=== PATIENT | male | born 1995 | race Caucasian/White ===

== ENCOUNTER 2024-10-01 13:27 | Emergency (ER) | payer SELFPAY ==
[2024-10-01 13:29] VITALS: BP 149/93; PULSE 96; RESP 18; TEMP 36.6; O2SAT 98
--- NOTE | 2024-10-01 14:38 | EDS_ITS ---
HPI History of Present Illness Chief Complaint: Sore Throat [facility] Medical History (Updated 10/01/24 @ 14:58 by Manuela Jacobo) Sore throat Allergy/AdvReac Type Severity Reaction Status Date / Time No Known Allergies Allergy Verified 10/01/24 13:33 Social History Smoking Status: Unknown if ever smoked EXAM Physical Exam Const Vital Signs: 10/01/24 13:29 10/01/24 14:58 10/01/24 17:00 Temperature 97.9 F Temperature Source Oral Pulse Rate 96 91 Respiratory Rate 18 20 H Blood Pressure 149/93 H Blood Pressure Mean 111 Pulse Ox 98 95 95 Oxygen Delivery Method Room Air Room Air Room Air MDM [facility] Narrative Medical decision making narrative: HISTORY OF PRESENT ILLNESS: Chief complaint: Sore throat [employer] used via [email or web address] network 28-year-old male presents with sore throat. REVIEW OF SYSTEMS: Pertinent positives: Sore throat Pertinent negatives: Drooling, vomiting PHYSICAL EXAM: Nursing triage notes reviewed, Vital signs reviewed Constitutional: please see mdm HENT: MMM, patent posterior oropharynx, no pooling of secretions, uvula midline, no pharyngeal exudates or edema, normal phonation, Eyes: Pupils equal round and reactive to light, Extraocular muscles intact Neck: No stridor, no JVD, full neck ROM, trachea midline, no lymphadenopathy Lungs: Clear to auscultation, No wheezing or rales. No increased work of breathing, no conversational dyspnea, no accessory muscle use, no nasal flaring. No respiratory distress noted Heart: Regular rate and rhythm, No murmurs, No rubs and No gallops, 2+ distal pulses (radial, femoral, posterior tibial) in all extremities Abdomen: Soft, there is no tenderness, rigidity, rebound or guarding, no obvious peritoneal signs, no palpable pulsatile abdominal masses, no auscultated abdominal bruit : No CVAT Extremities: No edema Neuro: No new focal neurological deficits, cranial nerves II through XII intact, 5/5 strength in all present extremities. Intact sensation to light touch in all present extremities, 2+ reflexes bilateral patella tendons. Skin: No rash or lesions noted MEDICAL DECISION MAKING: Chief Complaint: please see HPI External records reviewed: Reviewed prior encounters Factors affecting care: none Social determinants of health: none History obtained from others: none Consults: none [facility] Narrative: The patient was initially hemodynamically stable, exam without signs of respiratory distress. No sign of esophageal impaction patient is tolerating secretions, food and liquids. I considered the following differential diagnosis: Anatomic abnormality of the neck or throat, esophageal stricture ALL IMAGES (IF OBTAINED) HAVE BEEN PERSONALLY REVIEWED AND INTERPRETED BY MYSELF. CT scan of the neck showed no evidence of acute abnormalities. Strep swab negative No indication for admission or transfer at this time. Will recommend outpatient GI follow-up for upper endoscopy to further elucidate etiology of patient's complaints. The patient and/or family, caregivers express understanding. The patient and/or family, caregivers agrees with the plan. Shared decision making: I will have a discussion with the patient and or visitors regarding risk/benefits of further testing or admission. They will be made aware of of the risk/benefits inherent in this decision they will be given the opportunity to voice understanding. Total critical care time today provided was at least 0minutes. This excludes separately billable procedures. Critical care time (if documented) is secondary to the patient having high probability of clinically significant/life threatening deterioration in the patient's condition which required my urgent intervention. Impression: 1. Globus sensation 2. Dysphagia Dispo: Discharge home This note was generated with [employer] dictation software. It may contain incorrect words, spelling, and punctuation that were not noted in review of the chart prior to signing. Radiography Diagnostic Testing: Clinical Impression(s) from Imaging Studies Soft Tissue Neck CT 10/01/24 15:35 IMPRESSION: No acute abnormalities demonstrated involving the neck and adjacent structures. Leftward deviation of the nasal septum. Left maxillary sinus inflammation. Other nonacute findings detailed above. Reading Location: [place] [id number] Discharge Plan Triage Chief Complaint: Sore Throat ED Provider: Gabe Steve Dx/Rx/DC Orders Instructions: ED Dysphagia (Adult) Primary Care Provider: Care Physician,No Primary Referrals: Chase Alvarado DO [Med Staff - Active Staff] - Activity Restrictions/Additional Instructions: Thank you for trusting us with your care today! Please take Tylenol (2 pills, 650 mg), ibuprofen (2 pills, 400 mg) every 6 hours as needed for pain and fever control. Please return to the emergency department if your symptoms change or worsen. Please follow with Gastroenterology (Dr. Alvarado) for further outpatient evaluation and management. Print Language: Luxembourgish Disposition Disposition: Home, Self Care Discharge Date/Time: 10/01/24 17:31
[2024-10-01 14:58] VITALS: O2SAT 95
--- NOTE | 2024-10-01 15:35 | CT_ITS ---
PROCEDURE: SOFT TISSUE NECK WITH CONTRAST 10/01/2024 REASON FOR EXAM: FB IN THROAT/NECK TECHNIQUE: CT of the soft tissues of the neck from the orbits to the upper mediastinum with intravenous contrast. CONTRAST: Isovue-300 VOLUME: 90 mL. One or more dose reduction techniques were used (e.g., Automated exposure control, adjustment of the mA and/or kV according to patient size, use of iterative reconstruction technique). RADIATION DOSE SUMMARY: CTDlvol: 20.39 mGy DLP: 647.03 mGycm COMPARISON: No relevant prior. FINDINGS: Airway: Normal Salivary glands: Unremarkable. Lymph nodes: No adenopathy. Shotty lymph nodes on both sides of the neck. Thyroid: Unremarkable. Vasculature: Unremarkable. Orbits: No abnormalities. Paranasal sinuses and mastoids: Mucoperiosteal thickening, left maxillary sinus. Lung apices: Unremarkable. Upper mediastinum: No widening, adenopathy, or aneurysm. Bones: Leftward deviation of the nasal septum. Mild spondylosis. Other: No other significant findings. CT/Soft Tissue Neck WITH Contrast IMPRESSION: No acute abnormalities demonstrated involving the neck and adjacent structures. Leftward deviation of the nasal septum. Left maxillary sinus inflammation. Other nonacute findings detailed above. Reading Location: [place] [id number]
[2024-10-01 17:00] VITALS: PULSE 91; RESP 20; O2SAT 95
== END 2024-10-01 17:31 | disposition home or self-care (01) ==
PROVIDERS: Emergency Provider Emergency Medicine; Visit Provider Emergency Medicine
DX: J02.9 Acute pharyngitis, unspecified (principal); R13.10 Dysphagia, unspecified
CPT/HCPCS: 70491; 87651; 99282; Q9967